=== PATIENT | male | born 1940 | race Asian ===

== ENCOUNTER 2024-03-28 04:30 | Day surgery (SDC) | payer OTHER, BC ==
[2024-03-20 16:28] VITALS: BMI 20.7
[2024-03-28] MEDS ORDERED: LIDOCAINE HCL/PF 2% SDV 5ML VIAL ONE (07:15)
[2024-03-28] MEDS ORDERED: FENTANYL CITRATE/PF 50 MCG/ML VIAL ONE (07:15)
[2024-03-28] MEDS ORDERED: PROPOFOL 20 ML ONE (07:15)
[2024-03-28] MEDS ORDERED: MIDAZOLAM HCL 2 MG/2 ML SINGLE DOSE VIAL ONE (07:16)
[2024-03-28 07:37] LABS: POTASSIUM 4.8 mmol/L (3.5-5.1)
[2024-03-28 07:42] LABS: CREATININE 1.4 mg/dL (0.55-1.3)
[2024-03-28] MEDS: ceFAZolin SODIUM 1 GM VIAL IVPB ONE (07:44)
[2024-03-28] MEDS ORDERED: DEXTROSE 5%-0.45% SALINE 1,000 ML IV SCH (07:45)
[2024-03-28] MEDS ORDERED: ceFAZolin SODIUM 1 GM VIAL ONE (07:45)
[2024-03-28] MEDS ORDERED: ONDANSETRON 4 MG/2 ML VIAL ONE (08:11)
[2024-03-28] MEDS ORDERED: KETOROLAC TROMETHAMINE 30 MG/1 ML VIAL ONE (08:11)
[2024-03-28] MEDS ORDERED: ONDANSETRON 4 MG/2 ML VIAL IVPUSH PRN (08:36)
[2024-03-28] MEDS ORDERED: oxyCODONE HCL 5 MG TABLET PO PRN ×2 (08:36)
[2024-03-28] MEDS ORDERED: PROMETHAZINE HCL 25 MG/1 ML VIAL IVPB PRN (08:36)
[2024-03-28] MEDS ORDERED: FENTANYL CITRATE/PF 50 MCG/ML VIAL IVPUSH PRN ×2 (08:36)
[2024-03-28] MEDS: LACTATED RINGERS SOLUTION 1,000 ML IV SCH (08:45)
[2024-03-28] MEDS ORDERED: ACETAMINOPHEN INJECTION 100 ML IVPB ONE (08:54)
[2024-03-28] MEDS: ACETAMINOPHEN 1000 MG/100 ML BAG IVPB ONE ×3 (08:56→10:49)
[2024-03-28 09:52] VITALS: RESP 18
[2024-03-28 12:01] VITALS: BP 168/68; PULSE 61; TEMP 98.3
== END 2024-03-28 12:02 | disposition home or self-care (01) ==
LOC: JASU-SURG 04:30
PROVIDERS: ATTEND Urology
PROC: 0TC18ZZ Extirpation of Matter from Left Kidney, Via Natural or Artificial Opening Endoscopic (ICD-10-PCS; principal; 2024-03-28 07:30)
PROC: 0T778DZ Dilation of Left Ureter with Intraluminal Device, Via Natural or Artificial Opening Endoscopic (ICD-10-PCS; 2024-03-28 07:30)
DX: N20.2 Calculus of kidney with calculus of ureter (principal)
CPT/HCPCS: 36415; 76000-TC-FY; 80048; 82962; 94760; C1758; C2617; J0131